=== PATIENT | male | born 1950 | race African-American/Black ===

== ENCOUNTER 2024-08-24 13:32 | Emergency (ER) | payer BC, OTHER ==
[~2024-08-24] VITALS: Ht 175.3 cm; Wt 95.0 kg
[2024-08-24 13:52] VITALS: O2SAT 100
[2024-08-24 14:09] VITALS: BP 125/84; PULSE 80; RESP 18; O2SAT 100
[2024-08-24 16:15] LABS: BASOPHILS % 0.5 % (0.0-2.0); EOSINOPHILS % 0.8 % (0.0-5.0); HEMOGLOBIN. 14.1 g/dL (14.0-18.0); LYMPHOCYTES % 17.6 % (20.0-50.0); MEAN CORPUSCULAR HEMOGLOBIN 30.8 pg (28.0-32.0); MEAN CORPUSCULAR HGB CONC 33.6 g/dL (31.0-37.0); MEAN CORPUSCULAR VOLUME 91.5 fL (80.0-94.0); MEAN PLATELET VOLUME 7.9 fl (7.4-10.4); MONOCYTES % 6.5 % (2.0-8.0); NEUTROPHILS % 74.6 % (40.0-76.0); PLATELET 285 x1000/uL (130-400); RED BLOOD CELL COUNT 4.59 mill/uL (4.7-6.1); RED CELL DISTRIBUTION WIDTH 13.5 % (11.6-14.6); WHITE BLOOD COUNT 9.6 x1000/uL (4.5-11.0)
[2024-08-24 16:19] LABS: CHLORIDE 105 mEq/L (98-107); POTASSIUM 4.4 mEq/L (3.5-5.1); SODIUM 139 mEq/L (136-145)
[2024-08-24 16:20] LABS: CARBON DIOXIDE 26 mEq/L (21-32)
[2024-08-24 16:21] LABS: CALCIUM 10.3 mg/dL (8.7-10.4)
[2024-08-24 16:26] LABS: CREATININE 1.1 mg/dL (0.6-1.3); GLUCOSE 125 mg/dL (70-105); UREA NITROGEN BLOOD 9 mg/dL (9-23)
[2024-08-24 16:27] LABS: ALANINE AMINOTRANSFERASE 37 IU/L (10-49); ASPARTATE AMINOTRANSFERASE 34 IU/L (<34)
[2024-08-24 16:28] LABS: BILIRUBIN DIRECT 0.2 mg/dL (<=3.0); BILIRUBIN TOTAL 0.7 mg/dL (0.1-1.0); PROTEIN TOTAL 8.3 g/dL (6.0-8.3)
[2024-08-24 16:37] VITALS: TEMP 97.8
[2024-08-24] MEDS: ACETAMINOPHEN 650MG/20.3ML UDC PO ONE (16:37)
[2024-08-24] MEDS: ONDANSETRON HCL 4MG TABLET PO ONE (16:38)
[2024-08-24] MEDS ORDERED: POLY17PO3 MT (16:48)
== END 2024-08-24 17:02 | disposition home or self-care (01) ==
LOC: ER 13:32
DX: R10.12 Left upper quadrant pain (principal)
CPT/HCPCS: 99284; 74176; 80076; 80048; 83690; 85025; 36415; Q0162